=== PATIENT | female | born 1975 | race Caucasian/White ===

== ENCOUNTER 2019-01-12 16:28 | Emergency (ER) | payer OTHER, SELFPAY ==
[2019-01-12] MEDS ORDERED: CATAPRES PO ONE (16:58)
--- NOTE | 2019-01-12 16:59 | Event Note ---
ED Screening Note ED Screening Note: md sent for htn given clonidine in triage no cp or sob on coreg This initial assessment/diagnostic orders/clinical plan/treatment(s) is/are subject to change based on patients health status, clinical progression and re- assessment by fellow clinical providers in the ED. Further treatment and workup at subsequent clinical providers discretion. Patient/guardian urged not to elope from the ED as their condition may be serious if not clinically assessed and managed. Initial orders include: labs xray reeval in [facility]
[2019-01-12 17:43] LABS: Hematocrit 42.3 % (30.3-42.9); Mean Corpuscular HGB Conc 36 % (30-34); Mean Corpuscular Volume 89 fl (79-97); Platelet Count 217 K/mm3 (140-440); Red Blood Count 4.76 M/mm3 (3.65-5.03); Red Cell Distribution Width 13.5 % (13.2-15.2)
[2019-01-12 18:06] LABS: Calcium 8.4 mg/dL (8.4-10.2)
--- NOTE | 2019-01-12 21:32 | Emergency Department Report ---
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 Reis's office. Patient's blood pressure was 194/128 while in office. Past medical history of hypertension and abnormal gestational kidney function. Patient states she was previously taking amlodipine and losartan. In June her blood pressure medication was switched to carvedilol 0.25 mg. Patient denies chest pain, shortness of breath, dizziness, palpitations, nausea or vomiting. -: This morning Severity scale (0 -10): 0 Improves with: none Worsens with: none Associated Symptoms: denies other symptoms Treatments Prior to Arrival: none - Related Data Home Medications Medication Instructions Recorded Confirmed Last Taken Carvedilol [Coreg] 6.25 mg PO BID 06/27/18 06/27/18 2 Days Ago ~06/25/18 Losartan Potassium 50 mg PO DAILY 06/27/18 06/27/18 2 Days Ago ~06/25/18 Sodium Bicarbonate 1 tab PO QPM 06/27/18 06/27/18 2 Days Ago ~06/25/18 Sodium Bicarbonate 2 tab PO QAM 06/27/18 06/27/18 2 Days Ago ~06/25/18 Previous Rx's Medication Instructions Recorded Last Taken Type Carvedilol [Coreg] 25 mg PO BID #60 tablet 01/13/19 Unknown Rx Allergies Allergy/AdvReac Type Severity Reaction Status Date / Time No Known Allergies Allergy Verified 01/12/19 16:59 ED Review of Systems ROS: Stated complaint: HBP/SENT BY DOCTOR Other details as noted in HPI Constitutional: denies: chills, fever Respiratory: denies: cough, shortness of breath, wheezing Cardiovascular: denies: chest pain, palpitations Gastrointestinal: denies: abdominal pain, nausea, diarrhea Skin: denies: rash, lesions Neurological: headache. denies: weakness, paresthesias ED Past Medical Hx - Past Medical History Previous Medical History?: Yes Hx Hypertension: Yes Hx Congestive Heart Failure: No Hx Diabetes: No Hx Deep Vein Thrombosis: No Hx Renal Disease: Yes (abnormal kidney labs) Hx Sickle Cell Disease: No Hx Seizures: No Hx Asthma: No Hx COPD: No Hx HIV: No Additional medical history: seasonal allergies - Surgical History Past Surgical History?: No - Social History Smoking Status: Never Smoker Substance Use Type: None - Medications Home Medications: Home Medications Medication Instructions Recorded Confirmed Last Taken Type Carvedilol [Coreg] 6.25 mg PO BID 06/27/18 06/27/18 2 Days Ago History ~06/25/18 Losartan Potassium 50 mg PO DAILY 06/27/18 06/27/18 2 Days Ago History ~06/25/18 Sodium Bicarbonate 1 tab PO QPM 06/27/18 06/27/18 2 Days Ago History ~06/25/18 Sodium Bicarbonate 2 tab PO QAM 06/27/18 06/27/18 2 Days Ago History ~06/25/18 Carvedilol [Coreg] 25 mg PO BID #60 tablet 01/13/19 Unknown Rx ED Physical Exam - General Limitations: Language Barrier General appearance: alert, in no apparent distress - Respiratory Respiratory exam: Present: normal lung sounds bilaterally. Absent: respiratory distress, wheezes, rales, rhonchi, stridor, chest wall tenderness - Cardiovascular Cardiovascular Exam: Present: regular rate, normal rhythm. Absent: systolic murmur, diastolic murmur, rubs, gallop - GI/Abdominal GI/Abdominal exam: Present: soft, normal bowel sounds. Absent: distended, tenderness, guarding, rebound, rigid - Neurological Exam Neurological exam: Present: alert, oriented X3, normal gait - Psychiatric Psychiatric exam: Present: normal affect, normal mood - Skin Skin exam: Present: warm, dry, intact, normal color. Absent: rash ED Course Vital Signs 01/12/19 01/12/19 01/12/19 16:57 19:00 22:51 Temperature 97.6 F 97.6 F Pulse Rate 73 88 64 Respiratory 18 18 15 Rate Blood Pressure 151/104 146/98 166/97 [Right] O2 Sat by Pulse 99 100 100 Oximetry ED Medical Decision Making - Lab Data Result diagrams: 01/12/19 17:05 01/12/19 17:05 Lab Results 01/12/19 01/12/19 Range/Units 17:05 17:05 WBC 7.5 (4.5-11.0) K/mm3 RBC 4.76 (3.65-5.03) M/mm3 Hgb 15.0 H (10.1-14.3) gm/dl Hct 42.3 (30.3-42.9) % MCV 89 (79-97) fl MCH 32 (28-32) pg MCHC 36 H (30-34) % RDW 13.5 (13.2-15.2) % Plt Count 217 (140-440) K/mm3 Sodium 136 L (137-145) mmol/L Potassium 4.4 (3.6-5.0) mmol/L Chloride 103.3 (98-107) mmol/L Carbon Dioxide 18 L (22-30) mmol/L Anion Gap 19 mmol/L BUN 22 H (7-17) mg/dL Creatinine 1.8 H (0.7-1.2) mg/dL Estimated GFR 31 ml/min BUN/Creatinine Ratio 12 % Glucose 112 H (65-100) mg/dL Calcium 8.4 (8.4-10.2) mg/dL - Radiology Data Radiology results: report reviewed PROCEDURE: XR CHEST ROUTINE 2V TECHNIQUE: PA and lateral chest radiographs were obtained. HISTORY: chest pain FINDINGS: Frontal and lateral views of the chest were acquired. The heart is normal in size. The lungs appear clear. The pleura and mediastinum are within normal limits. IMPRESSION: No active disease in the chest - Medical Decision Making Patient was examined by me. Past medical history of hypertension, chronic kidney disease, and overweight. Patient was sent to the emergency room from manager ed Dr. Hernandez. Blood pressure elevated and patient is in no acute distress. Obtained labs and chest x-ray. X-rays dictated by radiologist and no acute findings. There is blood and leukocyte Estrace and a urinalysis but patient is currently on menses. There is acute renal failure. Consulted hospitalist Dr. Vidal. Dr. Vidal spoke with the patient and patient refused to be admitted. IV initiated. Patient hydrated with 2 L of normal saline bolus IV. Start carvedilol 25 mg by mouth by mouth twice a day. Follow-up with PCP next week for management of care. Plan discussed with patient to discharge home and treat outpatient. Patient discharged home in stable condition. Follow up with PCP in 2-3 days. Critical care attestation.: If time is entered above; I have spent that time in minutes in the direct care of this critically ill patient, excluding procedure time. ED Disposition Clinical Impression: Acute renal injury, Uncontrolled hypertension Disposition: DC-01 TO HOME OR SELFCARE Is pt being admited?: No Does the pt Need Aspirin: No Condition: Stable Instructions: Chronic Kidney Disease (ED), Hypertension (ED) Additional Instructions: Encourage stop smoking to reduce cardiovascular risk. Moderate caffeine consumption is acceptable. Begin and maintain aerobic exercise, with a goal of at least 30 minutes of moderate intensity, dynamic aerobic exercise (walking, jogging, cycling, or swimming) 5 days per week to total 150 minutes as tolerated or recommended by a physician. Take medication daily as prescribed. Follow up with Primary Care Provider in 1 week. Prescriptions: Carvedilol [Coreg] 25 mg PO BID #60 tablet Referrals: NATE HERNANDEZ MD [Staff Physician] - 3-5 Days Time of Disposition: 00:04
--- NOTE | 2019-01-12 21:48 | XRay Report ---
PROCEDURE: XR CHEST ROUTINE 2V TECHNIQUE: PA and lateral chest radiographs were obtained. HISTORY: chest pain FINDINGS: Frontal and lateral views of the chest were acquired. The heart is normal in size. The lung s appear clear. The pleura and mediastinum are within normal limits. IMPRESSION: No active disease in the chest This document is electronically signed by Js Ghosh MD., January 12 2019 09:46:34 PM ET
[2019-01-12] MEDS ORDERED: NACL 0.9% 1000 ML 1,000 ML IV ONE ×2 (22:16)
[2019-01-12 22:52] VITALS: BP 166/97
[2019-01-13 00:07] LABS: Bilirubin,Urine NEG (Negative); Blood,Urine LG (Negative); Color,Urine Red (Yellow); Urobilinogen,Urine < 2.0 mg/dL (<2.0)
[2019-01-13 00:23] LABS: HCG Qualitative,Urine Negative (Negative)
[2019-01-13 00:26] LABS: RBC,Urine > 182.0 /HPF (0.0-6.0)
== END 2019-01-13 01:03 | disposition home or self-care (01) ==
LOC: ED 16:28
DX: I10 Essential (primary) hypertension (principal); N17.9 Acute kidney failure, unspecified
CPT/HCPCS: 36415; 71046; 80048; 81001; 81025; 85027; 87086; 99284; J7030